=== PATIENT | female | born 1995 | race Caucasian/White ===

== ENCOUNTER → 2018-05-15 | Outpatient (CLI) | payer OTHER ==
--- NOTE | 2018-05-15 15:45 | US ---
EXAMINATION TYPE: US transvaginal DATE OF EXAM: 05/15/2018 COMPARISON: NONE CLINICAL HISTORY: 22-year-old female N92.6 irregular periods. Pt states LMP: 3 months ago and 3 years of irregular menses TECHNIQUE: Transvaginal (TV). Date of LMP: 3 months ago FINDINGS: EXAM MEASUREMENTS: Uterus: 7.5 x 4.2 x 4.5 cm Endometrial Stripe: 0.4 cm Right Ovary: 3.1 x 2.2 x 2.7 cm for a volume of 9.8 mL. Left Ovary: 3.8 x 2.7 x 3.1 cm for a volume of 16.6 mL. 1. Uterus: Anteverted wnl 2. Endometrium: wnl 3. Right Ovary: wnl 4. Left Ovary: Cystic structure = 2.6 x 1.9 x 2.6 cm 5. Bilateral Adnexa: wnl 6. Posterior cul-de-sac: wnl IMPRESSION: 1. A 2.6 cm dominant follicle or functional cyst in the left ovary. 2. Otherwise, unremarkable transvaginal sonographic examination of the pelvis.
== END | disposition home or self-care (01) ==
LOC: MERGE 05-09 07:40 → RADUSWWP 14:51
PROVIDERS: ATTEND Family Medicine
DX: N92.6 Irregular menstruation, unspecified (principal)
CPT/HCPCS: 76830